=== PATIENT | female | born 1965 | race Two or more races ===

== ENCOUNTER → 2017-06-28 | Emergency (ER) | payer OTHER ==
[~2017-06-28] VITALS: Ht 170.2 cm; Wt 93.0 kg
[~2017-06-28] MED LIST: MOTRIN800 MG PO; TESSALON PERLE100 MG PO; TUSSI PRES-B L120 M1 PO; ZITHROMAX TRI-500 MG PO
== END | disposition home or self-care (01) ==
LOC: ER 09:38
DX: B34.9 Viral infection, unspecified (principal); N39.0 Urinary tract infection, site not specified

== ENCOUNTER 2018-01-01 15:00 | Emergency (ER) | payer OTHER ==
[~2018-01-01] VITALS: Ht 170.2 cm; Wt 79.4 kg
== END 2018-01-01 20:43 | disposition home or self-care (01) ==
LOC: ER 15:00
DX: J32.0 Chronic maxillary sinusitis (principal)

== ENCOUNTER 2019-11-04 09:31 | Emergency (ER) | payer OTHER ==
[~2019-11-04] VITALS: Ht 165.1 cm; Wt 95.3 kg
== END 2019-11-04 13:54 | disposition home or self-care (01) ==
LOC: ER 09:31
DX: J06.9 Acute upper respiratory infection, unspecified (principal)

== ENCOUNTER 2019-12-11 10:04 | Emergency (ER) | payer OTHER ==
[~2019-12-11] VITALS: Ht 162.6 cm; Wt 90.7 kg
== END 2019-12-11 14:51 | disposition home or self-care (01) ==
LOC: ER 10:04
DX: I95.1 Orthostatic hypotension (principal); R42 Dizziness and giddiness; N39.0 Urinary tract infection, site not specified; B95.2 Enterococcus as the cause of diseases classified elsewhere; Z03.818 Encounter for observation for suspected exposure to other biological agents ruled out